=== PATIENT | male | born 1945 | race African-American/Black ===

== ENCOUNTER 2016-04-04 10:14 | Outpatient (CLI) | payer MEDICARE ==
[2016-04-04 12:58] LABS: Anion Gap 14 mmol/L (10-20); BUN (Urea Nitrogen) 12 mg/dL (8.4-25.7); Calc. Creatinine Clearance 0 mL/min (70-130); Calcium 9.1 mg/dL (7.8-10.44); Carbon Dioxide 26 mmol/L (23-31); Chloride 108 mmol/L (98-107); Estimated GFR-MDRD Greater than 90
== END 2016-04-04 10:15 | disposition home or self-care (01) ==
LOC: NAVSJIPCSP 10:14
PROVIDERS: ATTEND Internal Medicine
DX: M10.9 Gout, unspecified (principal); I12.9 Hypertensive chronic kidney disease with stage 1 through stage 4 chronic kidney disease, or unspecified chronic kidney disease; N18.2 Chronic kidney disease, stage 2 (mild); H40.1132 Primary open-angle glaucoma, bilateral, moderate stage
CPT/HCPCS: 36415; 80048; 84550

== ENCOUNTER 2016-10-18 09:48 | Outpatient (CLI) | payer MEDICARE ==
--- NOTE | 2016-10-18 11:23 | RAD ---
THREE VIEWS LEFT FOOT: History: Foot pain. FINDINGS: AP, lateral, and oblique views of the left foot are obtained. Images demonstrate vascular calcifications seen. Some osteophytes are seen in the intertarsal joints. No evidence of acute fractures, subluxations, o r erosive changes seen. No evidence of obvious metatarsal phalangeal joint abnormalities seen. IMPRESSION: No definite visible evidence of arthritic changes compatible with gout seen. POS: [facility]
== END 2016-10-18 09:49 | disposition home or self-care (01) ==
LOC: NAV RAD 09:48
PROVIDERS: ATTEND Internal Medicine
DX: M10.9 Gout, unspecified (principal)

== ENCOUNTER 2017-09-10 15:17 | Outpatient (CLI) | payer MEDICARE ==
--- NOTE | 2017-09-10 16:55 | RAD ---
LEFT HIP TWO VIEWS: 09/10/2017 HISTORY: Hip pain. Bursitis. COMPARISON: None. FINDINGS: There is severe degenerative change involving the left hip with prominent superior joint space narrow ing, as well as prominent lateral acetabulum osteophyte formation. There is osteophyte formation at the junction of the femoral head and neck, laterally. No acute fracture or dislocation. There is at herosclerotic calcification within the medial left thigh. IMPRESSION: Prominent degenerative joint disease of the left hip. POS: [facility]
== END 2017-09-10 15:18 | disposition home or self-care (01) ==
LOC: NAV RAD 15:17
PROVIDERS: ATTEND Internal Medicine
DX: M70.62 Trochanteric bursitis, left hip (principal); M16.12 Unilateral primary osteoarthritis, left hip

== ENCOUNTER 2018-03-28 09:11 | Outpatient (CLI) | payer MEDICARE ==
--- NOTE | 2018-03-28 12:28 | CT ---
CT ABDOMEN AND PELVIS WITH AND WITHOUT CONTRAST: HISTORY: Renal cell carcinoma. COMPARISON: CT abdomen 04/16/2017. FINDINGS: The lung bases are clear. No pericardial effusion. Hepatic cyst superior pole right kidney is similar as well as interpolar right kidney. Large cyst of the interpolar left kidney with some mass effect on the collecting systems is similar. Postoperative changes of the interpolar left kidney neoplasm excision site from prior nephrectomy is unchanged with some areas of fat necrosis. No internal enhancement. No new abnormal enhancing renal mass. The renal veins are patent. There is a mass at the dorsal aspect of the pancreatic body measuring up to 1.6 cm without significan t internal enhancement, unchanged in size from 2015. Smaller hypodense lesions are also present at t he pancreatic body, also unchanged from the comparison examination. At the pancreatic head are also multiple hypodense lesions also unchanged. The prostate is unremarkable. No dilated loops of large or small bowel. Appendix is visualized and is normal. On the delayed phase of contrast, there is an extrinsic mass effect in the left infrarenal collecting system due to the large left renal cyst, although there are no intrinsic filling defects. Moderate degenerative changes of both hips. Moderate facet arthropathy lower lumbar spine. Mild chronic intrahepatic biliary dilatation. Scatte red hepatic hypodensities are similar. There is cholelithiasis. IMPRESSION: 1. No evidence for disease recurrence. 2. Unchanged pancreatic hypodensities dating back to 2014. Continued followup imaging is recommende d. 3. Unchanged renal cysts and hepatic cysts. 4. No filling defect within the collecting systems nor ureters nor the urinary bladder with some ext rinsic mass effect upon the left anterior renal collecting system due to the large left renal cyst. POS: [facility]
== END 2018-03-28 09:12 | disposition home or self-care (01) ==
LOC: NAV CT 09:11
PROVIDERS: ATTEND Urology
DX: C64.2 Malignant neoplasm of left kidney, except renal pelvis (principal); R31.29 Other microscopic hematuria; N28.1 Cyst of kidney, acquired; K76.89 Other specified diseases of liver
CPT/HCPCS: 71046; 74178

== ENCOUNTER 2018-04-05 16:11 | Inpatient (IN) | payer MEDICARE ==
[2018-04-05] MEDS ORDERED: Non-Formulary Item 1 EACH (Acetaminophen [Tylenol] 1 CAP) PO PRN (18:39)
[2018-04-05] MEDS: Atorvastatin Calcium 10 MG TAB PO SCH (21:32)
[2018-04-05] MEDS: Latanoprost 0.005% Ophth Soln 2.5 ml Bottle EA EYE SCH (21:32)
[2018-04-05] MEDS: DorzolamidE/Timolol 2%/0.5% Ophth Soln 10 ml Bottle EA EYE SCH (21:32)
[2018-04-05] MEDS: HYDROcodone/Acetaminophen 5/325 mg Tablet PO PRN (21:32)
[2018-04-05] MEDS: Aspirin 81 mg Enteric Coated Tablet PO SCH (21:32)
[2018-04-06 05:31] LABS: #Basophils 0.1 thou/uL (0.0-0.2); #Eosinphils 0.5 thou/uL (0.0-0.7); #Lymphocytes 1.1 thou/uL (1.20-3.40); #Monocytes 1.1 thou/uL (0.11-0.59); #Neutrophils 8.9 thou/uL (1.40-6.50); %Basophils 1.2 % (0.0-1.0); %Eosinophils 4.1 % (0.0-10.0); %Lymphocytes 9.4 % (21.0-51.0); %Neutrophils 76.3 % (42.0-75.0); Hemoglobin 10.5 g/dL (14.0-18.0); Mean Corpuscular HGB CONC 31.2 g/dL (32.0-36.0); Mean Corpuscular Hemoglobin 30.5 pg (27.0-31.0); Mean Corpuscular Volume 97.8 fL (78.0-98.0); Platelet Count 321 thou/uL (130-400); RBC Distribution Width 11.6 % (11.5-14.5); Red Blood Cell (RBC) Count 3.44 mill/uL (4.70-6.10); White Blood Cell (WBC) Count 11.6 thou/uL (4.8-10.8)
[2018-04-06 05:46] LABS: ALT (SGPT) 19 U/L (8-55); AST (SGOT) 22 U/L (5-34); Albumin 3.1 g/dL (3.4-4.8); Alkaline Phosphatase 53 U/L (40-150); Anion Gap 10 mmol/L (10-20); BUN (Urea Nitrogen) 11 mg/dL (8.4-25.7); Bilirubin, Total 0.9 mg/dL (0.2-1.2); Calc. Creatinine Clearance 0 mL/min (70-130); Calcium 9.1 mg/dL (7.8-10.44); Carbon Dioxide 28 mmol/L (23-31); Chloride 103 mmol/L (98-107); Estimated GFR-MDRD Greater than 90; Globulin 2.7 g/dL (2.4-3.5); Glucose 114 mg/dL (83-110); Potassium 3.6 mmol/L (3.5-5.1); Protein, Total 5.8 g/dL (5.8-8.1); Sodium 137 mmol/L (136-145)
[2018-04-06] MEDS ORDERED: LISINOPRIL PO SCH (09:00)
[2018-04-06] MEDS ORDERED: HYDROCHLOROTHIAZIDE PO SCH (09:00)
[2018-04-06] MEDS: Potassium Chloride 20 MEQ TAB PO SCH ×2 (09:59→18:44)
[2018-04-06] MEDS: Allopurinol 100 MG TAB PO SCH (09:59)
[2018-04-06] MEDS: Aspirin 81 mg Enteric Coated Tablet PO SCH ×2 (09:59→20:13)
[2018-04-06] MEDS: Amlodipine 5 MG TAB PO SCH (09:59)
[2018-04-06] MEDS: Hydrochlorothiazide 25 MG TAB PO SCH (09:59)
[2018-04-06] MEDS: Lisinopril 20 MG TAB PO SCH (10:00)
[2018-04-06] MEDS: Doxazosin 2 MG TAB PO SCH (10:00)
[2018-04-06] MEDS: DorzolamidE/Timolol 2%/0.5% Ophth Soln 10 ml Bottle EA EYE SCH ×2 (10:01→20:13)
[2018-04-06] MEDS ORDERED: Milk Of Magnesia 30 ML UDCUP PO PRN (12:31)
--- NOTE | 2018-04-06 12:49 | PRG ---
DATE OF SERVICE: 04/06/2018 SUBJECTIVE: The patient feels increased pain and constipation this morning. Said he did sleep last night, but is asking for pain medications. Having no shortness of breath or chest pain. OBJECTIVE: VITAL SIGNS: His blood pressure is 160/95, pulse 108, temperature 98.3, and respirations 18. LUNGS: Clear. CARDIAC: Regular rhythm. No gallops or murmurs. ABDOMEN: Soft and nontender. EXTREMITIES: Left hip incision is healing well. ASSESSMENT: 1. Resolving left total hip with increased pain since epidural removed and we will increase Ossian to 2 every 4-6 hours as needed. 2. Constipation. We will start him on MiraLAX 17 g daily and milk of magnesia as needed. 3. Hypertension, slightly uncontrolled, but possibly due to pain. We will monitor closely with pain relief. 4. Benign prostatic hypertrophy, doing well on doxazosin. We will continue on these medicines and monitor for retention since Cheung catheter has been removed. Job ID: [id number]
--- NOTE | 2018-04-06 14:07 | HP ---
Admission to the [facility]. CHIEF COMPLAINT: Status post left hip replacement. HISTORY OF PRESENT ILLNESS: The patient is a very pleasant 72-year-old white male, well known to myself with a long history of hypertension, hyperlipidemia, arthritis, and degenerative disk disease of his back. He has had recurrent left leg pain for the past several years. This initially was felt to be due to recurrence of his degenerative disk disease that was relieved by his back surgery in [address] Cerda, but apparently, his back is doing well, so subsequently, his hip was evaluated, found to have significant arthritis, and he has undergone left total hip replacement for chronic pain by Dr. Ritter. He has done well with this, but has recently had his epidural removed as well as his Cheung and is now having increasing pain. He states that when he had his epidural and he was able to do therapy very well and wishes to do it again. He also is complaining of some constipation, but no nausea, vomiting, or anorexia. He does have a history as mentioned above of hypertension, but has no history of shortness of breath, chest pain, or palpitations. PAST MEDICAL HISTORY: Also remarkable for gout, which has been well controlled on medication; benign prostatic hypertrophy, which has been stable, on doxazosin 4 mg daily, but there is concern since his epidural has been discontinued, if he will have problems, this will be monitored closely. PAST SURGICAL HISTORY: Positive for hernia repair, the above-mentioned laminectomy by Dr. Cerda in 2013, right ankle surgery, a left kidney mass removal 2 years ago with no recurrence. No evidence of malignancy. FAMILY MEDICAL HISTORY: Positive for both parents with no acute illnesses. SOCIAL HISTORY: Nonsmoker, nondrinker. Lives with his . ALLERGIES: HE HAS NO KNOWN ALLERGIES. MEDICATIONS: At this time, include: 1. Allopurinol 300 daily. 2. Amlodipine 2.5 daily. 3. Aspirin 81 daily. 4. Atorvastatin 10 nightly. 5. Benazepril 10 daily. 6. Doxazosin 4 mg daily. 7. Lodi 5/325 as needed for pain every 4 to 6 hours. 8. Hydrochlorothiazide 12.5 daily. 9. Glaucoma eye drops, latanoprost one drop each eye nightly. 10. Lisinopril 20 daily. 11. K-Dur 20 mEq twice daily. REVIEW OF SYSTEMS: HEENT: Denies any headaches, dizziness, change in vision or hearing, hoarseness, or dysphagia. PULMONARY: Denies cough, sputum production, pneumonia, asthma, or tuberculosis. CARDIOVASCULAR: Denies chest pain, orthopnea, paroxysmal nocturnal dyspnea, or edema. GASTROINTESTINAL: Denies nausea, vomiting, or diarrhea. Does have some constipation. GENITOURINARY: Denies any dysuria or hematuria. Decreased stream since the Cheung was discontinued. MUSCULOSKELETAL: He is having increasing pain in his left hip since epidural has been removed, not relieved by hydrocodone 5/325. NEUROLOGIC: Denies localized numbness or weakness in arms or extremities. PHYSICAL EXAMINATION: GENERAL: The patient is an elderly black male, lying in bed, no acute distress. Oriented x3 and cooperative. VITAL SIGNS: Show him to have blood pressure of 180/72, temperature is 98, pulse 94, respirations 18, and O2 saturation is 96% on room air. HEENT: Pupils are equal, round, and reactive to light and accommodation. Sclerae anicteric. Conjunctivae pale. Oral mucous membranes well hydrated. NECK: Supple. There are no nodes or masses. JVP is not elevated. LUNGS: Clear. CARDIAC: Showed regular rhythm. No gallops or murmurs. ABDOMEN: Soft and nontender with no masses or organomegaly. SKIN/EXTREMITIES: Showed left hip incision healing well with tenderness on movement, but not on palpation. NEUROLOGIC: Shows no focal findings. LABORATORY DATA: Shows white count 11,800; hematocrit 33; and hemoglobin 10.6. Sodium is 139, potassium 3.7, chloride 105, bicarbonate 25, BUN 15, and creatinine 1.0. BNP 44.6. ASSESSMENT: 1. A 72-year-old black male with a history of severe degenerative joint disease of left hip, status post left total hip replacement, now with some pain since epidural has been removed and will be monitored closely on increasing doses of Lodi. 2. Hypertension, elevated, most likely due to pain. We will monitor closely on prehospitalization medications. 3. Benign prostatic hypertrophy with stable lower tract obstructive symptoms on doxazosin 4 mg nightly. We will monitor closely since Cheung has been removed. 4. History of left renal mass. No evidence of recurrence stable. PLAN: 1. Continue PT/OT. 2. Continue Lodi 5/325 or 10/325 every 4 to 6 hours as needed for pain. 3. Monitor urine output. 4. Give MiraLAX as needed for constipation as well as milk of magnesia. 5. Continue to monitor blood pressure closely on home medications. Job ID: [id number]
[2018-04-06] MEDS: HYDROcodone/Acetaminophen 5/325 mg Tablet PO PRN (15:19)
[2018-04-06] MEDS: Latanoprost 0.005% Ophth Soln 2.5 ml Bottle EA EYE SCH (20:13)
[2018-04-06] MEDS: Atorvastatin Calcium 10 MG TAB PO SCH (20:13)
[2018-04-07] MEDS: HYDROcodone/Acetaminophen 5/325 mg Tablet PO PRN ×2 (01:26→11:53)
[2018-04-07] MEDS: Potassium Chloride 20 MEQ TAB PO SCH ×2 (08:54→18:48)
[2018-04-07] MEDS: Allopurinol 100 MG TAB PO SCH (09:17)
[2018-04-07] MEDS: Amlodipine 5 MG TAB PO SCH (09:17)
[2018-04-07] MEDS: Hydrochlorothiazide 25 MG TAB PO SCH (09:20)
[2018-04-07] MEDS: Doxazosin 2 MG TAB PO SCH (09:21)
[2018-04-07] MEDS: Lisinopril 20 MG TAB PO SCH (09:22)
[2018-04-07] MEDS: DorzolamidE/Timolol 2%/0.5% Ophth Soln 10 ml Bottle EA EYE SCH ×2 (09:22→20:22)
[2018-04-07] MEDS: Aspirin 81 mg Enteric Coated Tablet PO SCH ×2 (09:23→20:21)
[2018-04-07] MEDS: Polyethylene Glycol 3350 17 GM Packet PO SCH (09:36)
--- NOTE | 2018-04-07 16:37 | PRG ---
DATE OF SERVICE: 04/07/2018 SUBJECTIVE: Mr. Crane is resting in bed. Denies any complaints. His spouse is in the room. He apparently has had two bowel movements. He is also voiding spontaneously. Nursing is still monitoring his postvoid residuals. OBJECTIVE: VITAL SIGNS: He is afebrile, heart rate 96, respirations 20, oxygen saturation 97% on room air, and blood pressure 146/74. CARDIOVASCULAR SYSTEM: S1 and S2 plus. RESPIRATORY SYSTEM: Normal vesicular breath sounds. ABDOMEN: Soft, nontender. Bowel sounds heard in all quadrants. EXTREMITIES: Without cyanosis or clubbing. Trace edema. Peripheral pulses are palpable. CENTRAL NERVOUS SYSTEM: The patient is awake and responsive. Cranial nerves 2 through 12 intact. Motor system examination shows generalized weakness. IMPRESSION: 1. Left hip severe arthritis, status post left hip replacement. 2. Benign prostatic hypertrophy. 3. Hypertension. 4. Dyslipidemia. 5. Chronic low back pain. 6. Glaucoma. PLAN: 1. Continue current medications. 2. Heart healthy diet. 3. Monitor urine output. 4. Incision care. 5. Orthopedic precautions. 6. DVT and stress ulcer prophylaxis. 7. Decubitus precautions. 8. Routine laboratory values. 9. Physical therapy. 10. Discussed with the patient, family, and nursing in detail, and all questions answered. Job ID: [id number]
[2018-04-07] MEDS: Atorvastatin Calcium 10 MG TAB PO SCH (20:21)
[2018-04-07] MEDS: Latanoprost 0.005% Ophth Soln 2.5 ml Bottle EA EYE SCH (20:22)
[2018-04-08] MEDS: HYDROcodone/Acetaminophen 5/325 mg Tablet PO PRN ×2 (05:15→22:51)
[2018-04-08] MEDS: Potassium Chloride 20 MEQ TAB PO SCH ×2 (09:16→16:59)
[2018-04-08] MEDS: Polyethylene Glycol 3350 17 GM Packet PO SCH (09:16)
[2018-04-08] MEDS: Amlodipine 5 MG TAB PO SCH (09:16)
[2018-04-08] MEDS: Allopurinol 100 MG TAB PO SCH (09:18)
[2018-04-08] MEDS: Hydrochlorothiazide 25 MG TAB PO SCH (09:19)
[2018-04-08] MEDS: Lisinopril 20 MG TAB PO SCH (09:20)
[2018-04-08] MEDS: Doxazosin 2 MG TAB PO SCH (09:20)
[2018-04-08] MEDS: Aspirin 81 mg Enteric Coated Tablet PO SCH ×2 (09:20→21:22)
[2018-04-08] MEDS: DorzolamidE/Timolol 2%/0.5% Ophth Soln 10 ml Bottle EA EYE SCH ×2 (09:25→21:30)
[2018-04-08 13:30] VITALS: BMI 30.7
[2018-04-08] MEDS ORDERED: Acetaminophen 325 MG TAB PO PRN (15:08)
[2018-04-08 19:47] LABS: #Basophils 0.1 thou/uL (0.0-0.2); #Eosinphils 0.5 thou/uL (0.0-0.7); #Monocytes 0.7 thou/uL (0.11-0.59); %Basophils 0.8 % (0.0-1.0); %Eosinophils 4.5 % (0.0-10.0); %Lymphocytes 8.8 % (21.0-51.0); %Monocytes 5.9 % (0.0-10.0); %Neutrophils 80.1 % (42.0-75.0); Hemoglobin 10.4 g/dL (14.0-18.0); Mean Corpuscular Hemoglobin 31.7 pg (27.0-31.0); Mean Corpuscular Volume 99.1 fL (78.0-98.0); Mean Platelet Volume 5.3 fL (7.4-10.4); Platelet Count 430 thou/uL (130-400); RBC Distribution Width 12.3 % (11.5-14.5); Red Blood Cell (RBC) Count 3.27 mill/uL (4.70-6.10); White Blood Cell (WBC) Count 11.3 thou/uL (4.8-10.8)
--- NOTE | 2018-04-08 20:27 | RAD ---
PORTABLE CHEST: History: Dyspnea. Decreased 02 saturation. FINDINGS: Lung winter appear clear. No infiltrate identified. Heart size upper normal. No significant change compared to 04-04-18. IMPRESSION: No acute lung process apparent. POS: [facility]
[2018-04-08] MEDS: Latanoprost 0.005% Ophth Soln 2.5 ml Bottle EA EYE SCH (21:22)
[2018-04-08] MEDS: Atorvastatin Calcium 10 MG TAB PO SCH (21:22)
[2018-04-09] MEDS: Potassium Chloride 20 MEQ TAB PO SCH ×2 (09:27→16:43)
[2018-04-09] MEDS: Amlodipine 5 MG TAB PO SCH (09:27)
[2018-04-09] MEDS: Allopurinol 100 MG TAB PO SCH (09:27)
[2018-04-09] MEDS: Doxazosin 2 MG TAB PO SCH (09:29)
[2018-04-09] MEDS: Hydrochlorothiazide 25 MG TAB PO SCH (09:30)
[2018-04-09] MEDS: Aspirin 81 mg Enteric Coated Tablet PO SCH ×2 (09:30→21:26)
[2018-04-09] MEDS: Lisinopril 20 MG TAB PO SCH (09:31)
[2018-04-09] MEDS: DorzolamidE/Timolol 2%/0.5% Ophth Soln 10 ml Bottle EA EYE SCH ×2 (09:32→21:27)
[2018-04-09] MEDS: Polyethylene Glycol 3350 17 GM Packet PO SCH (09:34)
[2018-04-09] MEDS: Latanoprost 0.005% Ophth Soln 2.5 ml Bottle EA EYE SCH (21:26)
[2018-04-09] MEDS: Atorvastatin Calcium 10 MG TAB PO SCH (21:26)
[2018-04-09] MEDS: HYDROcodone/Acetaminophen 5/325 mg Tablet PO PRN (21:28)
[2018-04-10] MEDS: HYDROcodone/Acetaminophen 5/325 mg Tablet PO PRN ×3 (08:30→20:45)
[2018-04-10] MEDS: Amlodipine 5 MG TAB PO SCH (08:31)
[2018-04-10] MEDS: Allopurinol 100 MG TAB PO SCH (08:31)
[2018-04-10] MEDS: Aspirin 81 mg Enteric Coated Tablet PO SCH ×2 (08:32→20:44)
[2018-04-10] MEDS: Hydrochlorothiazide 25 MG TAB PO SCH (08:32)
[2018-04-10] MEDS: Lisinopril 20 MG TAB PO SCH (08:32)
[2018-04-10] MEDS: Doxazosin 2 MG TAB PO SCH (08:32)
[2018-04-10] MEDS: Potassium Chloride 20 MEQ TAB PO SCH ×2 (08:32→16:55)
[2018-04-10] MEDS: DorzolamidE/Timolol 2%/0.5% Ophth Soln 10 ml Bottle EA EYE SCH ×2 (08:32→20:48)
[2018-04-10] MEDS: Polyethylene Glycol 3350 17 GM Packet PO SCH (08:33)
[2018-04-10] MEDS: Atorvastatin Calcium 10 MG TAB PO SCH (20:44)
[2018-04-10] MEDS: Latanoprost 0.005% Ophth Soln 2.5 ml Bottle EA EYE SCH (20:48)
--- NOTE | 2018-04-11 08:22 | PRG ---
DATE OF SERVICE: 04/08/2018 SUBJECTIVE: The patient feels much better. Decreased pain in his hip. Has been found to have a hairline crack of his femur during surgery, but physical therapy discussed with PT, and he has been found to still be partial weightbearing as tolerated and is progressing with therapy. OBJECTIVE: VITAL SIGNS: Show temperature is 99.3, pulse 116, respirations 18, O2 saturations 90% on room air, blood pressure 157/70. LUNGS: Clear. CARDIAC: Shows regular rhythm. ABDOMEN: Soft and nontender. ASSESSMENT: 1. Resolving left total hip replacement with decreasing pain, on scheduled hydrocodone and undergoing therapy. 2. New onset of tachycardia and hypoxia. We will obtain chest x-ray to evaluate for aspiration pneumonia and repeat CBC. Job ID: [id number]
--- NOTE | 2018-04-11 08:22 | PRG ---
DATE OF SERVICE: 04/10/2018 SUBJECTIVE: The patient feels well, no complaints, walking with therapy, has taken his pain medication prior to therapy. He is having no shortness of breath or chest pain. No nausea or vomiting. Has had good bowel movements. OBJECTIVE: VITAL SIGNS: Show blood pressure is 131/68, temperature is 97, pulse 94, respirations 20, O2 sats 98% on room air. EXTREMITIES: Left lateral hip incision healing well. ASSESSMENT: 1. Resolving left total hip replacement. 2. Improving deconditioning. 3. Stable hypertension. PLAN: 1. Continue PT/OT. 2. Continue DVT prophylaxis with aspirin. 3. Continue pain relief on a scheduled basis. 4. Continue to monitor vital signs closely. Job ID: [id number]
[2018-04-11] MEDS: Doxazosin 2 MG TAB PO SCH (08:28)
[2018-04-11] MEDS: Aspirin 81 mg Enteric Coated Tablet PO SCH ×2 (08:29→21:10)
[2018-04-11] MEDS: Hydrochlorothiazide 25 MG TAB PO SCH (08:29)
[2018-04-11] MEDS: Potassium Chloride 20 MEQ TAB PO SCH ×2 (08:29→17:08)
[2018-04-11] MEDS: Lisinopril 20 MG TAB PO SCH (08:29)
[2018-04-11] MEDS: HYDROcodone/Acetaminophen 5/325 mg Tablet PO PRN ×2 (08:29→17:08)
[2018-04-11] MEDS: Allopurinol 100 MG TAB PO SCH (08:29)
[2018-04-11] MEDS: Amlodipine 5 MG TAB PO SCH (08:30)
[2018-04-11] MEDS: DorzolamidE/Timolol 2%/0.5% Ophth Soln 10 ml Bottle EA EYE SCH ×2 (08:30→21:10)
[2018-04-11] MEDS: Polyethylene Glycol 3350 17 GM Packet PO SCH (08:37)
--- NOTE | 2018-04-11 08:39 | PRG ---
DATE OF SERVICE: 04/09/2018 SUBJECTIVE: The patient feels better and no further dyspnea, shortness of breath and decreasing pain with therapy. OBJECTIVE: VITAL SIGNS: Temperature is 98, pulse 98, respirations 18, O2 saturations 92% on room air, and blood pressure 151/68. LUNGS: Clear. CARDIAC: Regular rhythm. ABDOMEN: Soft and nontender. SKIN/EXTREMITIES: Healing left lateral incision. DIAGNOSTIC DATA: Chest x-ray shows no acute infiltrate or apparent lung process, acute. ASSESSMENT: 1. Resolving left total hip with controlled pain. 2. No evidence of pneumonia or pulmonary embolus. 3. Stable hypertension. 4. Improving deconditioning. PLAN: Continue PT/OT. Continue pain relief on a scheduled basis. Continue blood pressure control. Continue DVT prophylaxis with aspirin. Job ID: [id number]
--- NOTE | 2018-04-11 09:08 | PRG ---
DATE OF SERVICE: 04/11/2018 SUBJECTIVE: The patient is lying in the bed, resting well through the night, ready for more therapy and is awaiting his pain medication and breakfast this morning. He has been walking with physical therapy, and in fact yesterday, walked 250 feet, 275 feet, and 100 feet before stopping for fatigue and pain. OBJECTIVE: LUNGS: Clear. CARDIAC: Showed regular rhythm. ABDOMEN: Soft and nontender. VITAL SIGNS: Blood pressure is 144/69, temperature is 98, pulse is 93, respirations 18, O2 sats 92% on room air. ASSESSMENT: 1. Resolving left total hip. 2. Stable hypertension. 3. Improving deconditioning. 4. Controlled pain. PLAN: Continue PT/OT. Continue pain relief as needed. Discuss discharge planning with PT in the next several days. Job ID: [id number]
[2018-04-11] MEDS: Latanoprost 0.005% Ophth Soln 2.5 ml Bottle EA EYE SCH (21:10)
[2018-04-11] MEDS: Atorvastatin Calcium 10 MG TAB PO SCH (21:10)
[2018-04-12] MEDS: HYDROcodone/Acetaminophen 5/325 mg Tablet PO PRN ×3 (02:20→20:52)
[2018-04-12] MEDS: Hydrochlorothiazide 25 MG TAB PO SCH (08:13)
[2018-04-12] MEDS: Polyethylene Glycol 3350 17 GM Packet PO SCH (08:13)
[2018-04-12] MEDS: Doxazosin 2 MG TAB PO SCH (08:14)
[2018-04-12] MEDS: Allopurinol 100 MG TAB PO SCH (08:14)
[2018-04-12] MEDS: Potassium Chloride 20 MEQ TAB PO SCH ×2 (08:15→16:44)
[2018-04-12] MEDS: Amlodipine 5 MG TAB PO SCH (08:15)
[2018-04-12] MEDS: Aspirin 81 mg Enteric Coated Tablet PO SCH ×2 (08:17→20:52)
[2018-04-12] MEDS: Lisinopril 20 MG TAB PO SCH (08:17)
[2018-04-12] MEDS: DorzolamidE/Timolol 2%/0.5% Ophth Soln 10 ml Bottle EA EYE SCH ×2 (08:17→20:52)
[2018-04-12] MEDS: Atorvastatin Calcium 10 MG TAB PO SCH (20:52)
[2018-04-12] MEDS: Latanoprost 0.005% Ophth Soln 2.5 ml Bottle EA EYE SCH (20:52)
[2018-04-13] MEDS: HYDROcodone/Acetaminophen 5/325 mg Tablet PO PRN ×2 (02:14→09:19)
[2018-04-13] MEDS: Aspirin 81 mg Enteric Coated Tablet PO SCH ×2 (09:16→21:17)
[2018-04-13] MEDS: Amlodipine 5 MG TAB PO SCH (09:16)
[2018-04-13] MEDS: Polyethylene Glycol 3350 17 GM Packet PO SCH (09:16)
[2018-04-13] MEDS: Potassium Chloride 20 MEQ TAB PO SCH ×2 (09:18→17:47)
[2018-04-13] MEDS: Hydrochlorothiazide 25 MG TAB PO SCH (09:20)
[2018-04-13] MEDS: Doxazosin 2 MG TAB PO SCH (09:20)
[2018-04-13] MEDS: Lisinopril 20 MG TAB PO SCH (09:20)
[2018-04-13] MEDS: Allopurinol 100 MG TAB PO SCH (09:21)
[2018-04-13] MEDS: DorzolamidE/Timolol 2%/0.5% Ophth Soln 10 ml Bottle EA EYE SCH ×2 (09:24→21:16)
--- NOTE | 2018-04-13 18:41 | PRG ---
DATE OF SERVICE: 04/12/2018 SUBJECTIVE: The patient is cooperating well with therapy, walking in the [place], taking his pain medication before therapy and feels he is getting much better. OBJECTIVE: VITAL SIGNS: Show his temperature is 98.2, pulse 115, respirations 20, O2 saturation is 96% on room air, and blood pressure 131/60. LUNGS: Clear. CARDIAC: Showed regular rhythm. ABDOMEN: Soft and nontender. SKIN: Shows healing left hip incision. NEUROLOGICAL: Intact. ASSESSMENT: 1. Resolving left total hip replacement. 2. Stable hypertension. 3. Improving deconditioning and pain. PLAN: 1. Continue PT/OT. 2. Continue pain relief as needed. 3. Continue to monitor vital signs closely. Job ID: [id number]
--- NOTE | 2018-04-13 18:45 | PRG ---
DATE OF SERVICE: 04/13/2018 SUBJECTIVE: The patient states he feels better with no pain at rest except at night with occasional spasms in his legs, awakening him at night and denying any shortness of breath or headache. OBJECTIVE: VITAL SIGNS: Show blood pressure is 127/69, temperature is 98, pulse 94, respirations 18, and O2 sats 97% on room air. LUNGS: Clear. CARDIAC: Showed regular rhythm. ABDOMEN: Soft and nontender. SKIN/EXTREMITIES: Showed left hip incision healing well. ASSESSMENT: 1. Resolving left total hip. 2. Possible muscle spasms at night. 3. Improving deconditioning. 4. Stable hypertension. PLAN: 1. Start Flexeril 10 mg every night to see if this could prevent muscle spasms at night. 2. Continue hydrocodone prior to therapy. 3. Continue to monitor vital signs and blood pressure medications closely. Job ID: [id number]
[2018-04-13] MEDS: Cyclobenzaprine 10 MG TAB PO SCH (21:17)
[2018-04-13] MEDS: Latanoprost 0.005% Ophth Soln 2.5 ml Bottle EA EYE SCH (21:17)
[2018-04-13] MEDS: Atorvastatin Calcium 10 MG TAB PO SCH (21:17)
[2018-04-14] MEDS: HYDROcodone/Acetaminophen 5/325 mg Tablet PO PRN ×4 (01:02→20:57)
--- NOTE | 2018-04-14 08:48 | PRG ---
DATE OF SERVICE: SUBJECTIVE: The patient feels better with decreased spasms last night after taking cyclobenzaprine last night. He is up, eating breakfast with no complaints, and is anticipating discharge possibly this week. OBJECTIVE: VITAL SIGNS: Temperature 98.3, pulse 100, respirations 18, O2 sats 93% on room air, and blood pressure 149/74. LUNGS: Clear. CARDIAC: Regular rhythm. ABDOMEN: Soft and nontender. MUSCULOSKELETAL: Left hip is showing decreasing tenderness and decreasing spasm. No erythema or ecchymosis. ASSESSMENT: 1. Resolving left total hip. 2. Improved muscle spasm, on cyclobenzaprine at night. 3. Stable hypertension. PLAN: 1. Continue PT/OT. 2. Continue cyclobenzaprine 10 mg at night and hydrocodone as needed for pain. 3. Continue to monitor vital signs during therapy. 4. Continue to monitor for recurrent gout and gout control with allopurinol. Job ID: [id number]
[2018-04-14] MEDS: Polyethylene Glycol 3350 17 GM Packet PO SCH (09:39)
[2018-04-14] MEDS: Amlodipine 5 MG TAB PO SCH (09:40)
[2018-04-14] MEDS: Allopurinol 100 MG TAB PO SCH (09:40)
[2018-04-14] MEDS: Aspirin 81 mg Enteric Coated Tablet PO SCH ×2 (09:41→20:57)
[2018-04-14] MEDS: Doxazosin 2 MG TAB PO SCH (09:42)
[2018-04-14] MEDS: Potassium Chloride 20 MEQ TAB PO SCH ×2 (09:43→17:50)
[2018-04-14] MEDS: Hydrochlorothiazide 25 MG TAB PO SCH (09:43)
[2018-04-14] MEDS: Lisinopril 20 MG TAB PO SCH (09:43)
[2018-04-14] MEDS: DorzolamidE/Timolol 2%/0.5% Ophth Soln 10 ml Bottle EA EYE SCH ×2 (09:46→20:57)
[2018-04-14] MEDS: Famotidine 20 MG TAB PO SCH ×2 (09:56→20:57)
[2018-04-14] MEDS: Latanoprost 0.005% Ophth Soln 2.5 ml Bottle EA EYE SCH (20:57)
[2018-04-14] MEDS: Cyclobenzaprine 10 MG TAB PO SCH (20:57)
[2018-04-14] MEDS: Atorvastatin Calcium 10 MG TAB PO SCH (20:57)
[2018-04-15] MEDS: HYDROcodone/Acetaminophen 5/325 mg Tablet PO PRN ×4 (05:39→21:04)
[2018-04-15] MEDS: Doxazosin 2 MG TAB PO SCH (08:12)
[2018-04-15] MEDS: Allopurinol 100 MG TAB PO SCH (08:12)
[2018-04-15] MEDS: Amlodipine 5 MG TAB PO SCH (08:13)
[2018-04-15] MEDS: Famotidine 20 MG TAB PO SCH ×2 (08:13→21:03)
[2018-04-15] MEDS: Aspirin 81 mg Enteric Coated Tablet PO SCH ×2 (08:14→21:05)
[2018-04-15] MEDS: Lisinopril 20 MG TAB PO SCH (08:14)
[2018-04-15] MEDS: Potassium Chloride 20 MEQ TAB PO SCH ×2 (08:14→17:57)
[2018-04-15] MEDS: Hydrochlorothiazide 25 MG TAB PO SCH (08:14)
[2018-04-15] MEDS: DorzolamidE/Timolol 2%/0.5% Ophth Soln 10 ml Bottle EA EYE SCH ×2 (08:15→21:07)
[2018-04-15] MEDS: Polyethylene Glycol 3350 17 GM Packet PO SCH (08:16)
--- NOTE | 2018-04-15 17:58 | PRG ---
DATE OF SERVICE: 04/15/2018 SUBJECTIVE: The patient feels well, having some pain in his leg, but mainly spasms in the thigh after walking, but is cooperating well with therapy. OBJECTIVE: VITAL SIGNS: Show temperature is 98.1, pulse 93, respirations 20, O2 sats 91% on room air, and blood pressure 149/74. LUNGS: Clear. CARDIAC: Regular rhythm. ABDOMEN: Soft and nontender. SKIN/EXTREMITIES: Display some tenderness of the left eye, but with no swelling. Left hip appears to be healing well. ASSESSMENT: 1. Resolving left total hip with persistent muscle spasms, on cyclobenzaprine 10 mg at night and will increase to 10 mg three times daily. 2. Hypertension, controlled to goal. 3. Left renal mass, ablated with no sequelae. PLAN: Continue PT and OT. Increase cyclobenzaprine 10 mg three times daily. Continue to monitor blood pressure closely. Continue stress ulcer prophylaxis. Job ID: [id number]
[2018-04-15] MEDS: Atorvastatin Calcium 10 MG TAB PO SCH (21:04)
[2018-04-15] MEDS: Cyclobenzaprine 10 MG TAB PO SCH (21:05)
[2018-04-15] MEDS: Latanoprost 0.005% Ophth Soln 2.5 ml Bottle EA EYE SCH (21:08)
[2018-04-16] MEDS: HYDROcodone/Acetaminophen 5/325 mg Tablet PO PRN ×2 (06:25→11:55)
[2018-04-16] MEDS: Allopurinol 100 MG TAB PO SCH (08:23)
[2018-04-16] MEDS: Doxazosin 2 MG TAB PO SCH (08:23)
[2018-04-16] MEDS: Aspirin 81 mg Enteric Coated Tablet PO SCH ×2 (08:23→20:51)
[2018-04-16] MEDS: Cyclobenzaprine 10 MG TAB PO SCH ×3 (08:23→20:52)
[2018-04-16] MEDS: Lisinopril 20 MG TAB PO SCH (08:23)
[2018-04-16] MEDS: Hydrochlorothiazide 25 MG TAB PO SCH (08:24)
[2018-04-16] MEDS: Famotidine 20 MG TAB PO SCH ×2 (08:24→20:52)
[2018-04-16] MEDS: DorzolamidE/Timolol 2%/0.5% Ophth Soln 10 ml Bottle EA EYE SCH ×2 (08:24→20:52)
[2018-04-16] MEDS: Potassium Chloride 20 MEQ TAB PO SCH ×2 (08:24→17:30)
[2018-04-16] MEDS: Amlodipine 5 MG TAB PO SCH (08:24)
[2018-04-16] MEDS: Polyethylene Glycol 3350 17 GM Packet PO SCH (08:24)
[2018-04-16] MEDS: Atorvastatin Calcium 10 MG TAB PO SCH (20:51)
[2018-04-16] MEDS: Latanoprost 0.005% Ophth Soln 2.5 ml Bottle EA EYE SCH (20:53)
[2018-04-17] MEDS: HYDROcodone/Acetaminophen 5/325 mg Tablet PO PRN ×4 (03:14→20:29)
[2018-04-17] MEDS: Potassium Chloride 20 MEQ TAB PO SCH ×2 (08:08→15:25)
[2018-04-17] MEDS: Aspirin 81 mg Enteric Coated Tablet PO SCH ×2 (08:08→20:28)
[2018-04-17] MEDS: Allopurinol 100 MG TAB PO SCH (08:08)
[2018-04-17] MEDS: Amlodipine 5 MG TAB PO SCH (08:08)
[2018-04-17] MEDS: Famotidine 20 MG TAB PO SCH ×2 (08:08→20:29)
[2018-04-17] MEDS: Doxazosin 2 MG TAB PO SCH (08:10)
[2018-04-17] MEDS: Hydrochlorothiazide 25 MG TAB PO SCH (08:11)
[2018-04-17] MEDS: Cyclobenzaprine 10 MG TAB PO SCH ×3 (08:11→20:28)
[2018-04-17] MEDS: Lisinopril 20 MG TAB PO SCH (08:11)
[2018-04-17] MEDS: DorzolamidE/Timolol 2%/0.5% Ophth Soln 10 ml Bottle EA EYE SCH ×2 (08:12→20:28)
[2018-04-17] MEDS: Polyethylene Glycol 3350 17 GM Packet PO SCH (08:13)
--- NOTE | 2018-04-17 19:32 | PRG ---
DATE OF SERVICE: 04/16/2018 SUBJECTIVE: The patient feels well with decreased muscle spasms and pain, and cooperating well with therapy on cyclobenzaprine and hydrocodone as needed. He has had good control of his blood pressure with no shortness of breath or headache. ASSESSMENT: 1. Resolving left total hip. 2. Resolving muscle spasm. 3. Stable hypertension. PLAN: Continue PT and OT. Discuss discharge planning with PT and with family. Continue cyclobenzaprine and hydrocodone. Job ID: [id number]
--- NOTE | 2018-04-17 19:34 | PRG ---
DATE OF SERVICE: 04/17/2018 SUBJECTIVE: The patient feels well. He is up in bed. Had therapy today and has markedly decreased pain, and is anticipating discharge in the next 2 days. OBJECTIVE: VITAL SIGNS: Blood pressure is 144/77, O2 sats 94% on room air, pulse is 90. LUNGS: Clear. CARDIAC: Regular rhythm. ABDOMEN: Soft and nontender. Left hip shows healing incision. ASSESSMENT: 1. Resolving left total hip. 2. Stable hypertension. 3. Resolving muscle spasm. PLAN: 1. Continue cyclobenzaprine, hydrocodone. 2. Continue PT and OT. 3. Confirmed discharge planning with PT and family tomorrow. Job ID: [id number]
[2018-04-17] MEDS: Latanoprost 0.005% Ophth Soln 2.5 ml Bottle EA EYE SCH (20:27)
[2018-04-17] MEDS: Atorvastatin Calcium 10 MG TAB PO SCH (20:28)
[2018-04-18] MEDS: HYDROcodone/Acetaminophen 5/325 mg Tablet PO PRN ×3 (03:17→17:33)
[2018-04-18] MEDS: Amlodipine 5 MG TAB PO SCH (08:14)
[2018-04-18] MEDS: Doxazosin 2 MG TAB PO SCH (08:14)
[2018-04-18] MEDS: Hydrochlorothiazide 25 MG TAB PO SCH (08:16)
[2018-04-18] MEDS: Potassium Chloride 20 MEQ TAB PO SCH ×2 (08:17→17:33)
[2018-04-18] MEDS: Allopurinol 100 MG TAB PO SCH (08:17)
[2018-04-18] MEDS: Aspirin 81 mg Enteric Coated Tablet PO SCH ×2 (08:18→20:59)
[2018-04-18] MEDS: Famotidine 20 MG TAB PO SCH ×2 (08:18→20:59)
[2018-04-18] MEDS: Lisinopril 20 MG TAB PO SCH (08:18)
[2018-04-18] MEDS: Polyethylene Glycol 3350 17 GM Packet PO SCH (08:18)
[2018-04-18] MEDS: Cyclobenzaprine 10 MG TAB PO SCH ×3 (08:18→20:59)
[2018-04-18] MEDS: DorzolamidE/Timolol 2%/0.5% Ophth Soln 10 ml Bottle EA EYE SCH ×2 (08:23→21:00)
[2018-04-18] MEDS: Atorvastatin Calcium 10 MG TAB PO SCH (20:59)
[2018-04-18] MEDS: Latanoprost 0.005% Ophth Soln 2.5 ml Bottle EA EYE SCH (20:59)
[2018-04-19 07:33] VITALS: TEMP 98
[2018-04-19] MEDS: Potassium Chloride 20 MEQ TAB PO SCH (08:40)
[2018-04-19] MEDS: Cyclobenzaprine 10 MG TAB PO SCH (08:41)
[2018-04-19] MEDS: Famotidine 20 MG TAB PO SCH (08:41)
[2018-04-19] MEDS: Doxazosin 2 MG TAB PO SCH (08:41)
[2018-04-19] MEDS: Lisinopril 20 MG TAB PO SCH (08:41)
[2018-04-19] MEDS: Allopurinol 100 MG TAB PO SCH (08:41)
[2018-04-19] MEDS: DorzolamidE/Timolol 2%/0.5% Ophth Soln 10 ml Bottle EA EYE SCH (08:42)
[2018-04-19] MEDS: Aspirin 81 mg Enteric Coated Tablet PO SCH (08:42)
[2018-04-19] MEDS: Amlodipine 5 MG TAB PO SCH (08:42)
[2018-04-19] MEDS: Hydrochlorothiazide 25 MG TAB PO SCH (08:42)
[2018-04-19 08:43] VITALS: BP 143/81
[2018-04-19] MEDS: Polyethylene Glycol 3350 17 GM Packet PO SCH (08:43)
--- NOTE | 2018-04-19 09:58 | PRG ---
DATE OF SERVICE: 04/18/2018 SUBJECTIVE: The patient feels well. Minimal pain in the left leg. Walking with therapy. States he feels he is ready to be discharged home tomorrow and PT is agreeable. OBJECTIVE: VITAL SIGNS: Blood pressure is 144/77, temperature 97, pulse 97, respirations 20, and O2 saturations 94% on room air. LUNGS: Clear. CARDIAC: Regular rhythm. ABDOMEN: Soft and nontender. EXTREMITIES: Left hip shows healing incision. NEUROLOGIC: Intact. ASSESSMENT: 1. Resolving left total hip replacement. 2. Stable hypertension. 3. Improving deconditioning. 4. Stable renal function status post ablation of left renal mass. PLAN: Plan for discharge tomorrow to follow up with home health. Job ID: [id number]
[2018-04-19 11:08] LABS: #Basophils 0.1 thou/uL (0.0-0.2); #Eosinphils 0.5 thou/uL (0.0-0.7); #Lymphocytes 1.2 thou/uL (1.20-3.40); #Monocytes 0.8 thou/uL (0.11-0.59); #Neutrophils 6.2 thou/uL (1.40-6.50); %Eosinophils 6.1 % (0.0-10.0); %Monocytes 8.6 % (0.0-10.0); %Neutrophils 70.2 % (42.0-75.0); Hemoglobin 9.9 g/dL (14.0-18.0); Mean Corpuscular HGB CONC 30.1 g/dL (32.0-36.0); Mean Corpuscular Hemoglobin 30.2 pg (27.0-31.0); Mean Platelet Volume 4.9 fL (7.4-10.4); Platelet Count 513 thou/uL (130-400); RBC Distribution Width 13.3 % (11.5-14.5); Red Blood Cell (RBC) Count 3.27 mill/uL (4.70-6.10); White Blood Cell (WBC) Count 8.8 thou/uL (4.8-10.8)
[2018-04-19 11:10] LABS: ALT (SGPT) 16 U/L (8-55); AST (SGOT) 17 U/L (5-34); Albumin 3.4 g/dL (3.4-4.8); Alkaline Phosphatase 119 U/L (40-150); Anion Gap 11 mmol/L (10-20); BUN (Urea Nitrogen) 13 mg/dL (8.4-25.7); Bilirubin, Total 0.5 mg/dL (0.2-1.2); Calc. Creatinine Clearance 107 mL/min (70-130); Calcium 9.5 mg/dL (7.8-10.44); Carbon Dioxide 25 mmol/L (23-31); Chloride 109 mmol/L (98-107); Estimated GFR-MDRD Greater than 90; Globulin 2.7 g/dL (2.4-3.5); Glucose 103 mg/dL (83-110); Potassium 3.6 mmol/L (3.5-5.1); Protein, Total 6.1 g/dL (5.8-8.1); Sodium 141 mmol/L (136-145)
[2018-04-19] MEDS: HYDROcodone/Acetaminophen 5/325 mg Tablet PO PRN (11:33)
--- NOTE | 2018-04-20 01:41 | DIS ---
DATE OF ADMISSION: 04/05/2018 DATE OF DISCHARGE: 04/19/2018 FINAL DIAGNOSES: 1. Left total hip replacement. 2. Hypertension. 3. Hyperlipidemia. 4. Benign prostatic hypertrophy. 5. Degenerative disk disease. HOSPITAL COURSE: Patient is a 72-year-old black male with long history of hypertension, hyperlipidemia, arthritis, and degenerative disk disease of his back, who has been found also to have degenerative joint disease of the left hip, he has continued to have left hip and leg pain despite epidurals and steroids of his lumbar arthritis. He therefore has undergone left total hip replacement and has had great improvement in his hip pain, but is still unable to maintain himself at home and therefore was transferred to [facility] for continued PT. He has had a history of benign prostatic hypertrophy, but his Cheung catheter is removed with no difficulty as he was taking doxazosin. His hypertension was well controlled in the hospital. He did have some problem with pain requiring hydrocodone and muscle spasms, requiring cyclobenzaprine, cooperated well with therapy and was minimal assist walking with a walker on discharge. Medications on admission included allopurinol 300 daily, amlodipine 2.5 daily, aspirin 81 daily, atorvastatin 10 nightly, benazepril 10 daily, doxazosin 4 daily, Challenge 5/325 every 4 to 6 hours, hydrochlorothiazide 12.5 daily, lisinopril 20 daily, and K-Dur 20 mEq daily. He was continued on all these medications, including the potassium as he has had a longstanding history of hypokalemia. His wound healed well. No erythema or warmth. Lungs are clear. Cardiac examination showed regular rhythm. Sodium 137, potassium 3.6, chloride 103, bicarb 28, BUN 11, creatinine 0.79, glucose is 114, calcium 9.1, total bilirubin 0.9, AST 22, and ALT 19. White count 11,300, hematocrit 32, and hemoglobin 10. He will be seen in followup by myself in 1 to 2 weeks and will have home health physical therapy. Job ID: [id number]
== END 2018-04-19 14:09 | disposition home health service (06) | DRG 561 ==
LOC: NAV ACUTE 16:11
PROVIDERS: ADMIT Internal Medicine; ATTEND Internal Medicine
DX: Z47.1 Aftercare following joint replacement surgery (principal); I10 Essential (primary) hypertension; E78.5 Hyperlipidemia, unspecified; M10.9 Gout, unspecified; N40.0 Benign prostatic hyperplasia without lower urinary tract symptoms; K59.00 Constipation, unspecified; G89.29 Other chronic pain; M54.5 Low back pain; H40.9 Unspecified glaucoma; R00.0 Tachycardia, unspecified; R09.02 Hypoxemia; R53.81 Other malaise; M62.838 Other muscle spasm; Z98.890 Other specified postprocedural states; Z79.82 Long term (current) use of aspirin; Z79.899 Other long term (current) drug therapy
CPT/HCPCS: 36415; 71045; 80053; 83605; 85025

== ENCOUNTER 2019-04-29 08:45 | Outpatient (CLI) | payer MEDICARE ==
[2019-04-29] MEDS ORDERED: Iopamidol 370 76% 100 ML VIAL ONE (09:00)
--- NOTE | 2019-04-29 09:42 | RAD ---
XR Chest Pa Lat STANDARD HISTORY: Renal cell carcinoma COMPARISON: 04/08/2018 FINDINGS: The heart size is normal. The lungs are well expanded without focal areas of consolidation, pneumothorax or pleural effusions. There are degenerative changes in the spine.. IMPRESSION: No radiographic evidence of acute cardiopulmonary process.
--- NOTE | 2019-04-29 10:35 | CT ---
CT OF THE ABDOMEN AND PELVIS WITH IV CONTRAST INDICATION: History of renal cell carcinoma COMPARISON: CT abdomen pelvis dated March 28, 2018 FINDINGS: ABDOMEN: Lung bases: Clear Liver: Stable small hepatic cysts Gallbladder: Normal appearing. Pancreas: Pancreatic hypodense lesions are stable. The largest within the pancreatic body measuring 1 .8 cm. 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 This is a similar enhancing pattern within the adjacent spleen. Adrenal glands: Normal. Spleen: Normal. Kidneys and ureters: Stable bilateral renal cysts. The largest cyst measuring 8.7 cm within the left interpolar region. The postprocedural change with fat necrosis involving the left interpolar region is stable appearing. No recurrent solid renal mass is evident. Largest cyst within the superior pole of right kidney is stable measuring 6.7 cm. No hydronephrosis is demonstrated. Vasculature: There are mild vascular calcifications seen involving the visualized vasculature. Lymph nodes:No lymphadenopathy. Free fluid in abdomen:No free fluid is evident. PELVIS: Small and large bowel: Normal Appendix:Normal Bladder: Normal. Rectal and perirectal soft tissues:Normal. Reproductive structures: Normal. Free fluid in pelvis: No free fluid is evident. Lymphadenopathy pelvis: No lymphadenopathy is evident. Osseous structures: No acute osseous abnormality. No destructive osteolytic or osteoblastic lesion i s identified. There is scattered degenerative and osteoarthritic changes. Stable mild wedge compression fracture of L1. Soft tissues:Normal. IMPRESSION: 1. No evidence of recurrent solid renal mass lesion. Stable bilateral renal cysts. Stable post proced ural change involving left mid kidney. 2. Stable scattered pancreatic hypodensities. Continued follow-up is recommended. Solid appearing mas s lesion within the pancreatic tail is stable and has a similar enhancement pattern as adjacent spleen and is suspicious for a small splenule within the pancreatic tail. 3. Stable wedge compression fracture of L1. 4. Stable suspected small hepatic cysts.
== END 2019-04-29 08:46 | disposition home or self-care (01) ==
LOC: NAV CT 08:45
PROVIDERS: ATTEND Urology
DX: C64.2 Malignant neoplasm of left kidney, except renal pelvis (principal); N28.1 Cyst of kidney, acquired; R93.3 Abnormal findings on diagnostic imaging of other parts of digestive tract; K86.89 Other specified diseases of pancreas; S32.010A Wedge compression fracture of first lumbar vertebra, initial encounter for closed fracture
CPT/HCPCS: 71046; 74177; Q9967

== ENCOUNTER 2020-05-06 09:34 | Outpatient (CLI) | payer MEDICARE ==
[~2020-05-06 09:34] MED LIST: Iopamidol 370 76% 100 ML VIAL ONE
[2020-05-06 10:52] LABS: Calc. Creatinine Clearance 0 mL/min (70-130)
== END 2020-05-06 09:35 | disposition home or self-care (01) ==
LOC: NAV CT 09:34
PROVIDERS: ATTEND Urology
DX: C64.2 Malignant neoplasm of left kidney, except renal pelvis (principal); N28.1 Cyst of kidney, acquired; K76.89 Other specified diseases of liver; N28.89 Other specified disorders of kidney and ureter; N28.0 Ischemia and infarction of kidney; K86.89 Other specified diseases of pancreas; E27.8 Other specified disorders of adrenal gland; K82.0 Obstruction of gallbladder
CPT/HCPCS: 36415; 71046; 74170; 82565; Q9967

== ENCOUNTER 2021-07-05 09:03 | Outpatient (CLI) | payer MEDICARE ==
[2021-07-05 09:57] LABS: Calc. Creatinine Clearance 0 mL/min (70-130)
== END 2021-07-05 09:04 | disposition home or self-care (01) ==
LOC: NAV CT 09:03
PROVIDERS: ATTEND Urology
DX: C64.2 Malignant neoplasm of left kidney, except renal pelvis (principal); N28.1 Cyst of kidney, acquired; K86.2 Cyst of pancreas; K76.9 Liver disease, unspecified; Z98.890 Other specified postprocedural states
CPT/HCPCS: 36415; 71046; 74178; 82565; Q9967

== ENCOUNTER 2021-08-25 15:47 | Outpatient (CLI) | payer MEDICARE | END 2021-08-25 15:48 | disposition home or self-care (01) | LOC: NAV RAD 15:47 | PROVIDERS: ATTEND Family Medicine | DX: Z96.642 Presence of left artificial hip joint (principal) ==